=== PATIENT | male | born 1955 ===

== ENCOUNTER 2023-01-14 08:43 | Inpatient (IN) | payer OTHER ==
[~2023-01-14] VITALS: Ht 167.6 cm; Wt 76.2 kg
[2023-01-15] MEDS ORDERED: COZAAR50 MG PO (14:28)
[2023-01-15] MEDS ORDERED: SIMVAST PO (14:29)
[2023-01-20] MEDS ORDERED: DICYCLOMINE HCL20 MG (07:42)
[2023-01-20] MEDS ORDERED: ABATINEX680 MG (07:42)
[2023-01-20] MEDS ORDERED: DESITIN 40% PAS28 GM (07:42)
[2023-01-20] MEDS ORDERED: SIMVASTATIN20 MG (07:43)
[2023-01-20 15:22] LABS: HEMATOCRIT 43.7 % (39.0-48.0); HEMOGLOBIN 14.2 g/dL (13-16.00); MEAN CELL VOLUME 89.5 fL (80.0-100.00); MEAN CORPUSCULAR HEMOGLOBIN 29.2 pg (27.00-32.0); MEAN CORPUSCULAR HGB CONC 32.6 g/dl (32.0-36.0); PLATELET COUNT 317 K/uL (150-450); RED BLOOD COUNT 4.88 M/uL (4.00-6.00); RED CELL DISTRIBUTION WIDTH 13.4 % (11.5-14.5)
[2023-01-20 16:00] LABS: ALBUMIN 3.2 gm/dL (3.4-5.0); CALCIUM 8.3 mg/dL (8.5-10.1); CREATININE SERUM 1.11 mg/dL (0.70-1.30); GFR 66.28; MAGNESIUM 1.9 mg/dL (1.8-2.4); PHOSPHOROUS 3.5 mg/dL (2.5-4.9); POTASSIUM 4.26 mEq/L (3.5-5.1)
[2023-01-21 08:21] LABS: HEMATOCRIT 44.7 % (39.0-48.0); HEMOGLOBIN 15.2 g/dL (13-16.00); MEAN CELL VOLUME 88.6 fL (80.0-100.00); MEAN CORPUSCULAR HEMOGLOBIN 30.1 pg (27.00-32.0); PLATELET COUNT 306 K/uL (150-450); RED BLOOD COUNT 5.05 M/uL (4.00-6.00); RED CELL DISTRIBUTION WIDTH 13.3 % (11.5-14.5)
[2023-01-21 08:53] LABS: ALBUMIN 3.1 gm/dL (3.4-5.0); CALCIUM 8.5 mg/dL (8.5-10.1); CREATININE SERUM 0.94 mg/dL (0.70-1.30); GFR 80.29; PHOSPHOROUS 2.7 mg/dL (2.5-4.9); POTASSIUM 3.73 mEq/L (3.5-5.1)
[2023-01-22 08:45] LABS: HEMATOCRIT 46.3 % (39.0-48.0); HEMOGLOBIN 15.3 g/dL (13-16.00); MEAN CORPUSCULAR HEMOGLOBIN 29.3 pg (27.00-32.0); MEAN CORPUSCULAR HGB CONC 32.9 g/dl (32.0-36.0); PLATELET COUNT 305 K/uL (150-450); RED BLOOD COUNT 5.21 M/uL (4.00-6.00); RED CELL DISTRIBUTION WIDTH 13.5 % (11.5-14.5)
[2023-01-22 09:46] LABS: CALCIUM 8.4 mg/dL (8.5-10.1); CREATININE SERUM 0.83 mg/dL (0.70-1.30); GFR 92.69; MAGNESIUM 2.2 mg/dL (1.8-2.4); POTASSIUM 3.93 mEq/L (3.5-5.1)
[2023-01-22 10:22] LABS: PHOSPHOROUS 1.6 mg/dL (2.5-4.9)
[2023-01-23 06:46] LABS: HEMATOCRIT 44.7 % (39.0-48.0); MEAN CELL VOLUME 89.2 fL (80.0-100.00); MEAN CORPUSCULAR HGB CONC 33.6 g/dl (32.0-36.0); PLATELET COUNT 310 K/uL (150-450); RED BLOOD COUNT 5.02 M/uL (4.00-6.00); RED CELL DISTRIBUTION WIDTH 13.5 % (11.5-14.5)
[2023-01-23 07:11] LABS: CALCIUM 8.9 mg/dL (8.5-10.1); GFR 74.76; MAGNESIUM 2.3 mg/dL (1.8-2.4); PHOSPHOROUS 2.8 mg/dL (2.5-4.9); POTASSIUM 4.52 mEq/L (3.5-5.1)
== END 2023-01-24 09:46 | disposition home or self-care (01) | DRG 331 ==
LOC: SURH 01-20 05:23 → O/R 01-20 05:23 → SURG 01-20 07:00 → SURH 01-20 13:30
PROVIDERS: ADMIT Colon & Rectal Surgery; ATTEND Colon & Rectal Surgery
PROC: 0DBP4ZZ Excision of Rectum, Percutaneous Endoscopic Approach (ICD-10-PCS; 2023-01-20)
PROC: 07BC4ZX Excision of Pelvis Lymphatic, Percutaneous Endoscopic Approach, Diagnostic (ICD-10-PCS; 2023-01-20)
PROC: 0DJD8ZZ Inspection of Lower Intestinal Tract, Via Natural or Artificial Opening Endoscopic (ICD-10-PCS; 2023-01-20)
PROC: 0DTN4ZZ Resection of Sigmoid Colon, Percutaneous Endoscopic Approach (ICD-10-PCS; principal; 2023-01-20 07:00)
DX: C18.7 Malignant neoplasm of sigmoid colon (principal); D37.5 Neoplasm of uncertain behavior of rectum; R59.0 Localized enlarged lymph nodes; I10 Essential (primary) hypertension